=== PATIENT | female | born 1985 ===

== ENCOUNTER 2022-11-25 06:36 | Day surgery (SDC) | payer OTHER, SELFPAY ==
[2022-11-21 09:21] VITALS: BMI 29.9
--- NOTE | 2022-11-25 | PATH_ITS ---
[facility] Accession Number: [id number] No. of containers..01 Tissue . 01 Material submitted: . uterus - UTERUS AND BILATERAL FALLOPIAN TUBES . 01 Diagnosis: Uterus and Left and Right Fallopian Tubes, Supracervical Hysterectomy and Bilateral Salpingectomy: Endometrium: Secretory phase. Myometrium: Leiomyomata without significant atypia; adenomyosis. Fallopian tubes: Benign paratubal cyst. [facility] 12/05/2022 2328 Local . 01 Electronically signed: . Juliette Savage MD, Pathologist NPI- [id number] . 01 Gross description: . The specimen is received in formalin, labeled with the patient's name, , and uterus and fallopian tubes, and consists of multiple fragments of pink-schmitz morcellated uterine tissue aggregating to 12.5 x 12.0 x 3.8 cm and weighing 168 g. A cervix is not identified. The serosal surfaces are pink-schmitz and unremarkable. Minimal endometrial tissue is seen. The possible red-schmitz endometrium measures 0.1 cm in thickness and a pale pink, trabecular myometrium measuring up to 1.5 cm in thickness. No lesions are seen. Three possible leiomyomatous nodules are seen, up to 1.0 cm in greatest dimension. No areas of hemorrhage or necrosis are identified. The first unoriented violaceous fimbriated fallopian tube measures 5.7 cm in length and 0.7 cm in diameter. No paratubal cysts are seen. The second violaceous fimbriae fallopian tube measures 5.5 cm in length and 1.0 cm in diameter. A single serous fluid-filled, smooth-lined paratubal cyst is noted measuring 1.9 x 1.2 x 1.2 cm. [employer] sections are submitted as follows: A1-A2: Possible endometrium with underlying myometrium. A3: leiomyomatous nodules. A4-A5: First fallopian tube, fimbriae entirely submitted. A6-A7: Second fallopian tube, fimbriae and paratubal cyst entirely submitted. ([id number]) /[facility]R 11/26/2022 1118 Local . 01 Pathologist provided ICD-10: D25.9, N92.0 . 01 CPT . 530226 Specimen Comment: A courtesy copy of this report has been sent to [phone] Performed at: [address] [facility] [address] [place] [address] [id number] MD Caleb Gudino MD Phone: [phone]
[2022-11-25 06:53] VITALS: BP 130/81; PULSE 70; RESP 16; TEMP 36.4; O2SAT 100; BMI 30.2
[2022-11-25] MEDS: LACTATED RINGERS 1,000 ML 42 ML IV (07:16)
--- NOTE | 2022-11-25 07:22 | PM.PREOP ---
Pre-operative Note COVID-19 Criteria for continued procedure: Expected advancement of disease process Interval Note History & Physical reviewed/Exam performed by Physician: Yes Changes to H&P: No
[2022-11-25] MEDS: CEFAZOLIN 2 GM/100 ML PREMIX 100 ML IV (07:57)
--- NOTE | 2022-11-25 08:15 | SUR.OPER ---
Lithotomy on padded OR bed. [place] Pad Positioner under torso. Head on pillow, arms padded and tucked at sides. Legs secured in padded yellow fins stirrups.
[2022-11-25] MEDS: ROPIVACAINE 0.2% PF 2 MG/ML 20ML AMP 20 ML INJ (08:21)
[2022-11-25] MEDS: BUPIVACAINE 0.5% W/ EPI (PF) 30 ML VIAL INJ (08:22)
[2022-11-25] MEDS: LACTATED RINGERS 1,000 ML 100 ML IV (08:24)
[2022-11-25 09:17] VITALS: BP 107/69; PULSE 94; RESP 16; TEMP 36.7; O2SAT 98
[2022-11-25 09:22] VITALS: BP 119/66; PULSE 104; RESP 14; O2SAT 100
--- NOTE | 2022-11-25 09:26 | P.OP_ITS ---
Operative Date/Time/Diagnoses Date of procedure: 11/25/22 Time of procedure: 09:26 Pre-op diagnosis: Menorrhagia and dysmenorrhea with family history of endometriosis Post-op diagnosis: same Procedure & Clinicians Procedure: Laparoscopic supracervical hysterectomy with bilateral salpingectomy minimal lysis of adhesions Same procedure as scheduled: Yes Indications: Patient with menorrhagia, dysmenorrhea, adenomyosis by MRI, family history of endometriosis Surgeon: Bernadine Mosley Microbiology Lab Technician: Colin Campbell Click Yes if Unassisted: No Anesthesia Type: General Operative Notes Findings: Enlarged uterus with fibroids and adenomyosis. Normal-appearing ovaries and fallopian tubes. No endometriosis or internal hernias. Mild adhesion in the right upper lower quadrant of the omentum to the anterior abdominal wall. Closure Type: primary Specimen(s): other (Uterus above the level of the cervix and bilateral fallopian tubes) Applied: catheter (Nunn removed at the end of the case) Estimated Blood Loss (mL): 10 Blood products transfused: none Procedure in detail: Patient is brought to the operating room where she underwent general anesthesia and placed in [facility]. She was prepped and draped in the usual sterile fashion. A check list was reviewed with the staff in the room prior to beginning of the case. Patient had pulsatile stockings in place and functional. 2 g of Ancef were in prior to beginning of the case.. A Nunn catheter was placed. A single-tooth tenaculum was placed on the anterior lip of the cervix and the cervix dilated to a #6 Hegar dilator. The Zumi uterine manipulator was placed through the cervix into the uterus with the balloon inflated with 3 mL of air. The area of the umbilical incision and the 5 mm right and left lower quadrant incisions were injected with Marcaine. An incision was made with scalpel. The verries needle was placed into the abdomen and confirmed in the appropriate place with withdrawal on a syringe and then free flow of fluid down through the needle. The abdomen was insufflated with CO2. The needle was removed and a 5 mm trocar placed without difficulty. There did not appear to be any damage is placement of the trocar. The right and left lower quadrant incisions were made with the scalpel and the trochars placed without damage to internal structures. The power seal forceps were used to cauterize along the mesosalpinx followed by the round ligaments on both sides. Sequential bites were taken down the broad ligaments. The uterine arteries were cauterized. An incision was made above the level bladder pushing the bladder away from the cervix. The SAM loop was placed around the uterus and the uterus was amputated above the level of the bladder. Bleeding was controlled with the power seal forceps. The monopolar J-hook was used to cauterize in the endocervical canal. A supracervical incision was made and an 11 mm port placed. A 15 mm Endo Catch bag was placed in the abdomen. The uterus and tubes were placed in the bag and brought up through the suprapubic port site. The Jer O was placed. The uterus was hand morselized. The abdomen was reinsufflated and adequate hemostasis was noted. 20 cc of ropivacaine were placed over the cervical stump and ovarian ligaments. The trochars were removed and the CO2 allowed escape from the abdomen. The fascia layer of the suprapubic site was repaired with 0 Polysorb suture. Skin was closed with 4-0 Monocryl suture at the suprapubic site and the other 3 sites. The patient went to recovery room in good condition. Counts of instruments and sponges were correct. Dr. Campbell was present throughout the case to assist with holding the camera, retracting, cauterizing and cutting the structures on the left side of the patient, as well as assisting with morselization of the uterus. Complications: none Post-operative Condition: stable Disposition: same day surgery Plan for aftercare: Patient can be discharged home if she is getting adequate pain control and no nausea and vomiting.
[2022-11-25 09:28] VITALS: BP 106/57; PULSE 100; RESP 12; O2SAT 100
[2022-11-25 09:32] VITALS: BP 109/76; PULSE 98; RESP 12; TEMP 36.7; O2SAT 100
[2022-11-25 09:39] VITALS: BP 120/79; PULSE 93; RESP 12; TEMP 36.7; O2SAT 100
[2022-11-25] MEDS: ONDANSETRON 4 MG/2 ML INJ IV (10:01)
[2022-11-25] MEDS: OXYCODONE IR 5 MG TABLET PO (10:17)
== END 2022-11-25 09:52 | disposition home or self-care (01) ==
LOC: OR 06:38 → AC 06:39
PROVIDERS: PCP Nurse Practitioner Family; Referring Provider Specialist; Visit Provider Specialist
PROC: 0UT94ZL Resection of Uterus, Supracervical, Percutaneous Endoscopic Approach (ICD-10-PCS; CPT 58542; principal; 2022-11-25 07:45)
DX: N92.0 Excessive and frequent menstruation with regular cycle (principal); N94.6 Dysmenorrhea, unspecified; N80.03 Adenomyosis of the uterus; K66.0 Peritoneal adhesions (postprocedural) (postinfection); D25.9 Leiomyoma of uterus, unspecified
CPT/HCPCS: 58542; 81025; J0690; J2405; J2795; J3010